=== PATIENT | female | born 1960 | race Caucasian/White ===

== ENCOUNTER 2016-12-15 10:44 | Outpatient (CLI) | payer MEDICAID ==
[2016-12-15 20:16] LABS: FOLLICLE STIMULATING HORMONE 59.47 mIU/mL
[2016-12-15 20:17] LABS: LUTEINIZING HORMONE 25.17 mIU/mL
== END 2016-12-15 10:45 | disposition home or self-care (01) ==
LOC: LAB.N 10:44
PROVIDERS: ATTEND Obstetrics & Gynecology
DX: N95.1 Menopausal and female climacteric states (principal); Z86.59 Personal history of other mental and behavioral disorders
CPT/HCPCS: 36415; 83001; 83002; 87340; 87389

== ENCOUNTER 2016-12-24 13:09 | Outpatient (CLI) | payer MEDICAID ==
--- NOTE | 2016-12-24 15:51 | XRAY Report ---
TWO VIEW THORACIC SPINE: 12/24/2016 CLINICAL INDICATION: Chronic pain. FINDINGS: Frontal and lateral views of the thoracic spine demonstrate mild degenerative disk disease , with degenerative dextroscoliosis. No definite compression fracture is identified. No paraspinal he matoma is seen. IMPRESSION: DEGENERATIVE CHANGES, WITH DEGENERATIVE DEXTROSCOLIOSIS. JOB #: [id number] EXT JOB #:[id number]
--- NOTE | 2016-12-24 15:52 | XRAY Report ---
THREE VIEW LUMBAR SPINE: 12/24/2016 CLINICAL INDICATION: Chronic pain. FINDINGS: AP, lateral, and coned down views of the lumbar spine demonstrate degenerative changes, wi th degenerative levoscoliosis. There are mild compression deformities of T12, L3 and L4. The bowel ga s pattern appears unremarkable. IMPRESSION: DEGENERATIVE CHANGES, WITH CHRONIC APPEARING COMPRESSION FRACTURES OF T12, L3, AND L4, W ITH RESULTANT LEVOSCOLIOSIS. JOB #: [id number] EXT JOB #:[id number]
== END 2016-12-24 13:10 | disposition home or self-care (01) ==
LOC: DI 13:09
PROVIDERS: ATTEND Nurse Practitioner Gerontology
DX: M51.34 Other intervertebral disc degeneration, thoracic region (principal); M41.54 Other secondary scoliosis, thoracic region; M47.896 Other spondylosis, lumbar region; M43.8X6 Other specified deforming dorsopathies, lumbar region; M41.56 Other secondary scoliosis, lumbar region
CPT/HCPCS: 72070; 72100

== ENCOUNTER 2017-04-05 12:31 | Emergency (ER) | payer MEDICAID ==
--- NOTE | 2017-04-05 13:37 | ED Physician Documentation ---
PD HPI URI - Stated complaint Stated Complaint: COUGH,RUNNY NOSE,BODY ACHES,FEVER - Chief complaint Chief Complaint: Heent - History obtained from History obtained from: Patient - History of Present Illness Timing - onset: Other (Sick for less than 24 hours with cough, body aches, rhinorrhea, fevers and chills.) Review of Systems Constitutional: reports: Fever, Chills, Fatigue, Sweats Nose: reports: Rhinorrhea / runny nose, Congestion Throat: reports: Sore throat Cardiac: denies: Chest pain / pressure, Palpitations Respiratory: reports: Cough. denies: Dyspnea GI: denies: Abdominal Pain, Abdominal Swelling PD PAST MEDICAL HISTORY - Past Medical History Past Medical History: No Cardiovascular: None Respiratory: None Neuro: None Endocrine/Autoimmune: None Psych: None Musculoskeletal: None - Past Surgical History Past Surgical History: Yes General: Other /SHIFT COORDINATOR: Breast reduction - Present Medications Home Medications: Ambulatory Orders Medication Instructions Recorded Confirmed Fluticasone [Flonase] 07/13/14 07/13/14 Hydrocodone/Acetaminophen 1 - 2 each PO Q6H PRN #15 tablet 07/13/14 [Hydrocodon-Acetaminophen 5-325] Ipratropium [place] 07/13/14 07/13/14 Omeprazole [PriLOSEC] 1 tab DAILY 07/13/14 07/13/14 Penicillin V Potassium 500 mg PO QID #40 tablet 07/13/14 predniSONE [Deltasone] 60 mg PO DAILY 5 Days tablet 07/13/14 Albuterol Sulfate [Proventil Hfa 1 - 2 puffs IH Q4H PRN #1 04/05/17 Inhaler] hfa.aer.ad guaiFENesin/CODEINE [Robitussin AC] 5 - 10 ml PO Q6H PRN #120 ml 04/05/17 - Allergies Allergies/Adverse Reactions: Allergies Allergy/AdvReac Type Severity Reaction Status Date / Time doxycycline Allergy Unknown Verified 07/13/14 12:05 - Social History Does the pt smoke?: Yes Smoking Status: Current every day smoker Does the pt drink ETOH?: No Does the pt have substance abuse?: No - Immunizations Immunizations are current?: Yes PD ED PE NORMAL - Vitals Vital signs reviewed: Yes - General General: Alert and oriented X 3, No acute distress - HEENT HEENT: PERRL, EOMI, Ears normal, Pharynx benign - Neck Neck: Supple, no meningeal sign, No bony TTP - Cardiac Cardiac: RRR, No murmur - Respiratory Respiratory: No respiratory distress, Clear bilaterally - Abdomen Abdomen: Non tender - Derm Derm: No rash - Neuro Neuro: Alert and oriented X 3, Normal speech Results - Vitals Vitals: Vital Signs - 24 hr 04/05/17 12:36 Temperature 36.6 C Heart Rate 79 Respiratory 18 Rate Blood Pressure 134/99 H O2 Saturation 97 Oxygen O2 Source Room air - Labs Labs: Laboratory Tests 04/05/17 13:52 Influenza A (Rapid) Negative Influenza B (Rapid) Negative Influenza Types A,B Ag - Departure - Departure Disposition: Home, Self Care Clinical Impression: Viral syndrome Condition: Good Record reviewed to determine appropriate education?: Yes Instructions: ED Viral Syndrome Prescriptions: Albuterol Sulfate [Proventil Hfa Inhaler] 1 - 2 puffs IH Q4H PRN #1 hfa.aer.ad PRN Reason: Cough guaiFENesin/CODEINE [Robitussin AC] 5 - 10 ml PO Q6H PRN #120 ml PRN Reason: Cough Comments: Follow-up with your doctor in 1 week if not better. Return if worse or if new symptoms develop. Your blood pressure was elevated today on check into the emergency department. This does not mean that you have hypertension, it is a common phenomenon to come to the emergency department and have elevated blood pressure. I recommend that you see your primary care physician within the week to have it rechecked when you are feeling better.
[2017-04-05 14:35] VITALS: BP 136/94
== END 2017-04-05 14:28 | disposition home or self-care (01) ==
LOC: ED 12:31
DX: B34.9 Viral infection, unspecified (principal); R03.0 Elevated blood-pressure reading, without diagnosis of hypertension; F17.200 Nicotine dependence, unspecified, uncomplicated
CPT/HCPCS: 87275; 87276; 99283

== ENCOUNTER 2017-04-11 09:36 | Outpatient (CLI) | payer MEDICAID ==
--- NOTE | 2017-04-11 15:42 | Ultrasound Report ---
DATE OF SERVICE: 04/11/2017 ULTRASOUND OF LEFT POSTERIOR CHEST: 04/11/2017 CLINICAL INDICATION: Palpable abnormality. TECHNIQUE: Real-time scanning was performed with account service representative static images obtained. FINDINGS: Ultrasound of the palpable abnormality identified by the patient was performed. At this site, there is a 5.7 x 3.4 x 1.2 cm lipoma. No sonographically suspicious findings are appreciated. IMPRESSION: LIPOMA, ACCOUNTING FOR THE PALPABLE ABNORMALITY. TD: 04/11/2017 16:41
== END 2017-04-11 09:37 | disposition home or self-care (01) ==
LOC: DI 09:36
PROVIDERS: ATTEND Nurse Practitioner Gerontology
DX: D17.1 Benign lipomatous neoplasm of skin and subcutaneous tissue of trunk (principal)
CPT/HCPCS: 76604

== ENCOUNTER 2017-05-19 14:58 | Outpatient (CLI) | payer MEDICAID ==
--- NOTE | 2017-05-20 10:53 | XRAY Report ---
THREE VIEW BILATERAL KNEES: 05/19/2017 CLINICAL INDICATION: Pain. FINDINGS: AP, lateral, sunrise views of the bilateral knees demonstrate mild bilateral osteoarthritis. There is no evidence of fracture or dislocation. No effusion is present on either side. IMPRESSION: MILD OSTEOARTHRITIS. TD: 05/20/2017 10:52
== END 2017-05-19 14:59 | disposition home or self-care (01) ==
LOC: DI.N 14:58
PROVIDERS: ATTEND Nurse Practitioner Gerontology
DX: M17.0 Bilateral primary osteoarthritis of knee (principal)

== ENCOUNTER 2017-06-03 09:48 | Outpatient (CLI) | payer MEDICAID ==
--- NOTE | 2017-06-03 13:28 | XRAY Report ---
TWO VIEW CHEST: 06/03/2017 CLINICAL INDICATION: Preop, cervical prolapse. FINDINGS: Frontal and lateral views of the chest demonstrate a normal cardiac silhouette. The lungs are clear. No effusion or pneumothorax is present. IMPRESSION: NORMAL CHEST. TD: 06/03/2017 13:27
== END 2017-06-03 09:49 | disposition home or self-care (01) ==
LOC: LAB 09:48 → RT 09:49
PROVIDERS: ATTEND Obstetrics & Gynecology
DX: Z01.818 Encounter for other preprocedural examination (principal); N81.4 Uterovaginal prolapse, unspecified; N81.6 Rectocele; N81.10 Cystocele, unspecified
CPT/HCPCS: 71046; 93005

== ENCOUNTER 2017-06-06 11:23 | Outpatient (CLI) | payer MEDICAID ==
[2017-06-06 11:51] LABS: BASOPHILS # (AUTO) 0.1 10^3/uL (0.0-0.1); BASOPHILS % (AUTO) 0.5 %; EOSINOPHILS % (AUTO) 0.4 %; HGB - HEMOGLOBIN 14.8 g/dL (12.0-16.0); LYMPHOCYTES # (AUTO) 3.2 10^3/uL (1.5-3.5); LYMPHOCYTES % (AUTO) 33.4 %; MEAN CORPUSCULAR HEMOGLOBIN 29.4 pg (27.0-31.0); MEAN CORPUSCULAR HGB CONC 34.6 g/dL (32.0-36.0); MEAN CORPUSCULAR VOLUME 85.1 fL (81.0-99.0); MEAN PLATELET VOLUME 7.8 fL (7.9-10.8); MONOCYTES # (AUTO) 0.4 10^3/uL (0.0-1.0); MONOCYTES % (AUTO) 4.7 %; NEUTROPHILS # (AUTO) 5.8 10^3/uL (1.5-6.6); PLT - PLATELET COUNT 255 10^3/uL (130-450); RED BLOOD COUNT 5.02 10^6/uL (4.20-5.40); RED CELL DISTRIBUTION WIDTH 12.3 % (12.0-15.0); WHITE BLOOD COUNT 9.6 x10^3/uL (4.8-10.8)
[2017-06-06 12:02] LABS: ALBUMIN 4.3 g/dL (3.2-5.5); ALBUMIN/GLOBULIN RATIO 1.1 (1.0-2.2); BILIRUBIN,TOTAL 0.7 mg/dL (0.2-1.0); CALCIUM 9.2 mg/dL (8.5-10.3); CREATININE 0.5 mg/dL (0.4-1.0); TOTAL PROTEIN 8.3 g/dL (6.7-8.2)
== END 2017-06-06 11:24 | disposition home or self-care (01) ==
LOC: LAB 11:23
PROVIDERS: ATTEND Obstetrics & Gynecology
DX: Z01.818 Encounter for other preprocedural examination (principal); N81.4 Uterovaginal prolapse, unspecified; N81.6 Rectocele; N81.10 Cystocele, unspecified
CPT/HCPCS: 36415; 80053; 85025; 86850; 86900; 86901

== ENCOUNTER 2017-06-08 07:49 | Observation (INO) | payer MEDICAID ==
--- NOTE | 2017-06-07 15:24 | PREOP HISTORY & PHYSICAL ---
DATE OF SERVICE: 06/08/2017 Physician: Dashawn Russell MD IDENTIFICATION: The patient is a 56-year-old, G2, P2 female who reached menopause at time of hysterectomy. She states subsequent to this, she has had difficulty with bulging in the vaginal area. She states over the last 2 years that this has been getting progressively worse, she needs to rectal splint, as well as hold her abdomen when she defecates. She has difficulty with stress incontinence when she sneezes, laughs, coughs. She states that she has had 2 children vaginally, one of which was forceps. She was scheduled for an anterior posterior repair with sacrospinous ligament support in February of last year, but it had to be postponed because of operating room concerns and then again because of what appeared to be a URI. She did not engage in any intercourse at this time. PAST MEDICAL HISTORY: The patient has some difficulty with some heartburn. She also has some arthritis in her back and knees. SURGICAL HISTORY: Positive for a supracervical hysterectomy in 2006. She has had an open cholecystectomy. ALLERGIES: DOXYCYCLINE. CURRENT MEDICATIONS: Zantac. HABITS: The patient smokes 4 cigarettes per day and has been encouraged to complete this completely. She denies use of alcohol or any tetrahydrocannabinol. SOCIAL HISTORY: The patient is . She is retired at this time. She lives around family to support her. PHYSICAL EXAMINATION GENERAL: The patient is a well-developed, well-nourished female. She is in no acute distress. Her voice does sound like a bit of smoker's cough. VITAL SIGNS: Blood pressure 126/78. BMI is 32.2. Height is 62 inches, weight is 176 pounds. HEENT: Pupils are equal, round. Extraocular muscles are intact. There is no evidence of any scleral icterus. HEART: Regular rate and rhythm without murmurs. LUNGS: Lung felix are clear without rales or wheezes. BACK: No spinal or CVA tenderness noted. ABDOMEN: Shows a well-healed scar from her previous hysterectomy, as well as her open cholecystectomy. PELVIC: Shows a large cystocele, as well as rectocele. There is evidence of an enterocele behind her cervix. PLAN: At this point, we will plan to proceed on with an anterior posterior repair, as well as an enterocele repair and a sacrospinous ligament support. We will do a trachelectomy at the same time. Risks and benefits were explained to the patient including those but not limited to bleeding, infection; injury to the pelvic organs which include the uterus, tubes, ovaries, bowel, bladder and ureters. She is aware of the potential for DVT with PE, as well as postop adhesions which could cause pain, bowel obstruction, infertility. She is also aware that she may continue to have difficulty with defecation, as well as stress incontinence. At this point, the patient is somewhat reticent to do a sling procedure. TD: 06/07/2017 15:13
[2017-06-08] MEDS ORDERED: BUPIVACAINE 0.5% PF 10 ML VIAL ONE (08:04)
[2017-06-08] MEDS ORDERED: ceFAZolin 2 GM/50 ML 2 GM/50 ML BAG IV ONE (08:05)
[2017-06-08] MEDS ORDERED: LACTATED RINGERS 1,000 ML IV ONE ×3 (08:14→13:11)
[2017-06-08] MEDS ORDERED: SODIUM CHLORIDE 0.9% 0 ML ONE (09:19)
[2017-06-08] MEDS ORDERED: BUPIVACAINE 0.5%-EPI 1:200000 PF 10 ML VIAL ONE (09:19)
[2017-06-08] MEDS ORDERED: ACETAMINOPHEN 1,000 MG/100 ML 100 ML IV ONE (09:37)
[2017-06-08] MEDS ORDERED: MIDAZOLAM 2 MG/2 ML VIAL IVP ONE (09:37)
[2017-06-08] MEDS ORDERED: LIDOCAINE-MPF 2% 5 ML VIAL IM ONE (09:37)
[2017-06-08] MEDS ORDERED: DEXAMETHASONE 4 MG/ML VIAL IVP ONE (09:37)
[2017-06-08] MEDS ORDERED: KETOROLAC 30 MG/ML VIAL IVP ONE (09:37)
[2017-06-08] MEDS ORDERED: ONDANSETRON 4 MG/2 ML VIAL IVP ONE (09:37)
[2017-06-08] MEDS ORDERED: HYDROmorphone 1 MG/ML SYRINGE IVP ONE (09:37)
[2017-06-08] MEDS ORDERED: ESMOLOL 100 MG/10 ML VIAL IVP ONE (09:37)
[2017-06-08] MEDS ORDERED: PROPOFOL 200 MG/20 ML VIAL IVP ONE (09:37)
[2017-06-08] MEDS ORDERED: fentaNYL 250 MCG/5 ML VIAL IVP ONE (09:37)
[2017-06-08] MEDS ORDERED: EPINEPHrine 1 MG/ML AMP ONE ×2 (09:53→10:11)
[2017-06-08] MEDS ORDERED: BUPIVACAINE 0.25% PF 30 ML VIAL ONE ×2 (09:53→10:12)
[2017-06-08] MEDS ORDERED: BUPIVACAINE 0.25% PF 30 ML VIAL SUBQ ONE (10:11)
[2017-06-08] MEDS ORDERED: EPINEPHrine 1 MG/ML AMP IVP ONE (10:11)
[2017-06-08] MEDS ORDERED: GENTAMICIN 80 MG/2 ML VIAL IL ONE (11:27)
[2017-06-08] MEDS ORDERED: GENTAMICIN 80 MG/2 ML VIAL ONE (11:29)
[2017-06-08] MEDS ORDERED: ESTROGENS, CONJUGATED CREAM 30 GM TUBE VG ONE (12:00)
[2017-06-08] MEDS ORDERED: ESTROGENS, CONJUGATED CREAM 30 GM TUBE ONE (12:08)
[2017-06-08] MEDS ORDERED: ONDANSETRON 4 MG/2 ML VIAL IVP PRN (12:35)
[2017-06-08] MEDS ORDERED: ALBUTEROL NEB 2.5 MG/3 ML INH PRN (12:43)
[2017-06-08] MEDS: HYDROmorphone 1 MG/ML SYRINGE ONE ×2 (12:51→12:58)
[2017-06-08] MEDS ORDERED: KETOROLAC 30 MG/ML VIAL IVP SCH ×2 (13:00→20:00)
[2017-06-08] MEDS ORDERED: ACETAMINOPHEN 500 MG TABLET PO SCH (13:00)
[2017-06-08] MEDS: PHENAZOPYRIDINE 100 MG TABLET PO SCH ×3 (13:02→22:15)
[2017-06-08] MEDS ORDERED: SODIUM CHLORIDE FLUSH 0.9% 10 ML SYRINGE ONE (15:58)
[2017-06-08] MEDS: SIMETHICONE CHEW 80 MG TABLET PO SCH ×2 (16:18→22:16)
[2017-06-08] MEDS: oxyCODONE 5 MG TABLET PO PRN (21:22)
[2017-06-08] MEDS: LACTATED RINGERS 1,000 ML IV SCH ×2 (22:11→23:21)
[2017-06-08] MEDS: KETOROLAC 30 MG/ML VIAL IVP SCH (22:15)
[2017-06-08] MEDS: DOCUSATE SODIUM 100 MG CAPSULE PO SCH (22:15)
[2017-06-08] MEDS: ACETAMINOPHEN 500 MG TABLET PO SCH (23:21)
[2017-06-09] MEDS: KETOROLAC 30 MG/ML VIAL IVP SCH ×2 (04:26→09:58)
[2017-06-09] MEDS: SIMETHICONE CHEW 80 MG TABLET PO SCH ×2 (05:34→14:43)
[2017-06-09] MEDS: PHENAZOPYRIDINE 100 MG TABLET PO SCH ×2 (05:34→14:43)
[2017-06-09] MEDS: oxyCODONE 5 MG TABLET PO PRN ×2 (05:40→12:39)
[2017-06-09 05:46] LABS: BASOPHILS # (AUTO) 0.1 10^3/uL (0.0-0.1); BASOPHILS % (AUTO) 0.4 %; HGB - HEMOGLOBIN 12.8 g/dL (12.0-16.0); LYMPHOCYTES # (AUTO) 2.6 10^3/uL (1.5-3.5); LYMPHOCYTES % (AUTO) 14.3 %; MEAN CORPUSCULAR HEMOGLOBIN 28.8 pg (27.0-31.0); MEAN CORPUSCULAR HGB CONC 33.7 g/dL (32.0-36.0); MEAN CORPUSCULAR VOLUME 85.5 fL (81.0-99.0); MEAN PLATELET VOLUME 7.9 fL (7.9-10.8); MONOCYTES # (AUTO) 0.9 10^3/uL (0.0-1.0); MONOCYTES % (AUTO) 4.9 %; NEUTROPHILS # (AUTO) 14.5 10^3/uL (1.5-6.6); NEUTROPHILS % (AUTO) 80.4 %; PLT - PLATELET COUNT 234 10^3/uL (130-450); RED BLOOD COUNT 4.43 10^6/uL (4.20-5.40); RED CELL DISTRIBUTION WIDTH 12.7 % (12.0-15.0)
--- NOTE | 2017-06-09 08:26 | PROVIDER PROGRESS NOTE ---
Subjective - General Admit Date: 06/08/17 Procedure Date: 06/08/17 Post Op Days: 1 Procedure Performed: Traclectomy, A&P, Sacrospinus ligament suspension - Review of Systems Wound/Incisions: positive: Healing well Drain Type: Vaginal packing out General: positive: No symptoms (Pt notes pain 3/10 with good pain control.) Pulmonary: positive: No symptoms, Cough (Chronic smokers cough) Cardiovascular: positive: No symptoms Gastrointestinal: positive: No symptoms (tolerating a regular diet), Flatus Genitourinary: positive: No symptoms (Parrish out this AM) Psychiatric: positive: No symptoms Objective - Patient Data Reviewed Vital Signs: Yes Vital Signs: Vital Signs x48h Temp Pulse Pulse Resp BP Pulse Ox 06/09/17 08:00 36.6 C 65 18 137/60 H 94 06/09/17 07:20 62 16 06/09/17 05:31 36.6 C 54 L 16 148/63 H 96 Weight: Weight 06/07/17 06/08/17 06/09/17 23:59 23:59 23:59 Weight (kg) 80.4 kg Intake & Output: Intake and Output Totals x24h 06/07/17 06/08/17 06/09/17 23:59 23:59 23:59 Intake Total 1840 1800.000 Output Total 2100 1500 Balance -260 300.000 - Lab Results Lab Results: 06/09/17 05:24 Other Lab Results: Lab Results x24hrs 06/09/17 Range/Units 05:24 WBC 18.0 H (4.8-10.8) x10^3/uL RBC 4.43 (4.20-5.40) 10^6/uL Hgb 12.8 (12.0-16.0) g/dL Hct 37.9 (37.0-47.0) % MCV 85.5 (81.0-99.0) fL MCH 28.8 (27.0-31.0) pg MCHC 33.7 (32.0-36.0) g/dL RDW 12.7 (12.0-15.0) % Plt Count 234 (130-450) 10^3/uL MPV 7.9 (7.9-10.8) fL Neut # 14.5 H (1.5-6.6) 10^3/uL Lymph # 2.6 (1.5-3.5) 10^3/uL Terrell # 0.9 (0.0-1.0) 10^3/uL Eos # 0.0 (0.0-0.7) 10^3/uL Baso # 0.1 (0.0-0.1) 10^3/uL Absolute Nucleated RBC 0.00 x10^3/uL Nucleated RBC % 0.0 /100WBC - Imaging Results Radiology Imaging: positive: Prelim report reviewed, Final report received (CXR negative for Dz) - Current Medications Current Medications: Current Medications Generic Name Dose Route Start Last Admin Trade Name Freq PRN Reason Stop Dose Admin Acetaminophen 1,000 mg 06/09/17 00:00 06/08/17 23:21 Tylenol PO 1,000 mg Q8H [place] Administration Albuterol 2.5 mg 06/08/17 12:43 06/09/17 07:20 INH 2.5 mg RTQ4H PRN Administration Wheezing Docusate Sodium 100 mg 06/08/17 21:00 06/08/17 22:15 Colace 100mg Capsule PO 100 mg BID [place] Administration Lactated Ringer's 1,000 mls @ 100 mls/hr 06/08/17 13:00 06/09/17 08:20 Lr IV Infused .Q10H [place] Infusion Ketorolac Tromethamine 30 mg 06/08/17 22:00 06/09/17 04:26 Toradol Inj IVP 06/13/17 21:59 30 mg Q6H [place] Administration Oxycodone HCl 5 mg 06/08/17 12:35 06/09/17 05:40 Roxicodone PO 5 mg Q4HR PRN Administration PAIN Phenazopyridine HCl 100 mg 06/08/17 22:00 06/09/17 05:34 Pyridium PO 100 mg TID [place] Administration Simethicone 80 mg 06/08/17 14:00 06/09/17 05:34 Mylicon PO 80 mg TID [place] Administration - Physical Exam General Appearance: positive: No acute distress Respiratory: positive: Chest non-tender, No respiratory distress, Breath sounds nml Cardiovascular: positive: Regular rate & rhythm, No murmur, No gallop Abdomen: positive: Non-tender, No organomegaly, Nml bowel sounds, No distention Back: positive: Nml inspection. negative: CVA tenderness (R), CVA tenderness (L ) Skin: positive: Color nml Extremities: negative: Calf tenderness, Pauly's sign/cords Neurologic/Psychiatric: positive: Oriented x3 Impression/Plan - Problem List Problem List: POD #1 Progressing well IV, Parrish, and vaginal packing out Send home. Discharge medications Motrin 800 mg # 30 first Oxycodone 5 mg #15 second Colace 100 mg BID for 30 days #60 Miralax Home supply for first 3 ddays RTC 1-2 weeks Don't let get constipated.
--- NOTE | 2017-06-09 08:34 | Discharge Plan ---
Discharge Plan Disposition: 01 Home, Self Care Condition: Good Diet: Regular Activity Restrictions: Pelvic rest, no lifting greater than 20 lb Shower Restrictions: No Driving Restrictions: No (While taking her narcotics) No Smoking: If you smoke, Please STOP! Call for help. Follow-up with: Vandana Rodriguez ARNP [Primary Care Provider] - Dashawn Russell MD [Provider Admit Priv/Credential] -
[2017-06-09] MEDS: ACETAMINOPHEN 500 MG TABLET PO SCH (08:58)
[2017-06-09] MEDS: DOCUSATE SODIUM 100 MG CAPSULE PO SCH (08:59)
[2017-06-09] MEDS: LACTATED RINGERS 1,000 ML IV SCH (08:59)
[2017-06-09] MEDS ORDERED: NICOTINE 14 MG PATCH TOP SCH (09:00)
[2017-06-09] MEDS ORDERED: SODIUM CHLORIDE FLUSH 0.9% 10 ML SYRINGE ONE ×2 (09:02→10:02)
--- NOTE | 2017-06-09 09:23 | OPERATIVE REPORT ---
PLEASE VERIFY BLANK; REMOVE THIS NOTICE BEFORE SIGNING Sounded like 'cystocele was performed' Thanks DATE OF SERVICE: 06/08/2017 Physician: Dashawn Russell MD PREOPERATIVE DIAGNOSIS: Large symptomatic cystocele, rectocele, vaginal prolapse. POSTOPERATIVE DIAGNOSIS: Large symptomatic cystocele, rectocele, vaginal prolapse. PROCEDURE PERFORMED: Anterior and posterior repair, trachelectomy, sacrospinous ligament repair. SURGEON: Dashawn Russell MD CAR BODY INSPECTOR: Dashawn Watson MD ANESTHESIA: General via LMA. FINDINGS: Large cystocele as well as rectocele. She also had a cervix which prolapsed to the introitus. Vaginal mucosa appeared somewhat atrophic secondary to estrogenic state. PROCEDURE: Following adequate general anesthesia via LMA, patient was positioned in [facility] cane stirrups. At this point, pelvic examination was performed. There was a large amount of stool in the rectum, this was expressed. At this point, she was then prepped and draped in the usual fashion. At this point, a timeout was performed in which the patient was identified, concerns were addressed, and the procedure commenced. A weighted speculum was placed in the posterior fornix. Cervix was visualized, grasped with thyroid Abdifatah clamp anteriorly. The cervix was then circumscribed using electrocautery. Then using both blunt and sharp dissection, the bladder was pushed off the lower portion of the cervix. The posterior peritoneum was then entered posteriorly with Yao scissors. The uterosacral ligaments were cross clamped with Rolan clamps and then divided and then ligated with 0 Ethibond. Then the bladder was pushed a little bit farther anteriorly and then the transverse cervical ligaments were cross clamped with Rolan clamps, divided with Yao scissors and ligated with 0 Ethibond suture. Care was taken to try and slide off the bladder as closely as possible to decrease the risk of injury to the bladder or ureters. At this point, the clamp was placed on both sides. These traversed the apex of the cervix. Care was taken to push the bladder off to decrease the risk of bladder injury. Pedicles developed using Yao scissors and these were ligated with 0 Vicryl. The cervix was then removed from the vagina. The bladder was inspected and there was no evidence of any suture sites or injury sites at this time. At this point, the area was inspected. No bleeding was noted, so a pursestring of 4-0 Monocryl was placed. This closed the peritoneal surfaces. The uterosacral ligaments were injected with 0.25% Marcaine with epinephrine, 10 mL in each side. The corners of the apex of the vagina were then closed utilizing 0 Vicryl [id number]. Then, the apex of the vagina anteriorly was grasped with Allis, and then an Allis clamp was placed roughly 2 cm from the urethral opening. Metzenbaums were then used to dissect the vaginal mucosa from the vesicovaginal fascia as well as divide this. The edges were grasped with Allis-Adagiselle. The vaginal mucosa was pushed free from the bladder. At this point, interrupted sutures of 0 Vicryl were used to plicate the vesicovaginal fascia. An additional suture was placed anteriorly under the urethra to help with urinary continence. The excess vaginal mucosa was then trimmed, and then this was closed utilizing [id number] of 2-0 Vicryl. The apex of the vagina was then closed using interrupted sutures of 2-0 Vicryl. Prior to this, the transverse cervical ligaments were tied to themselves with the suture. Then, the perineum was excised utilizing a #10 blade in a triangular fashion. Then, the corners were grasped with Allis and utilizing Metzenbaum scissors, the vaginal mucosa was dissected free from the rectovaginal fascia and then divided utilizing Yao scissors. This was carried all the way up to within 3 cm of the apex of the vagina. Then using blunt dissection, the sacrospinous ligament was dissected to and then identified. Two sutures of Tevdek were then placed in the sacrospinous ligament. Care was to make sure these had a good firm attachment. Then, 1 arm was placed through the posterior vagina to withdraw it up into the pelvis. Following this, the rectovaginal fascia was plicated with 0 Vicryl and then the apex of the vaginal mucosa was closed using interrupted 2-0 Vicryl. Then utilizing a jair system, the apex of the vagina was pulled up to the right sacrospinous ligament and then tied. This showed evidence of the vagina going high into the pelvis on the right hand side. The remainder of the posterior vaginal mucosa was closed utilizing 2-0 Vicryl, and the perineum was closed using 2-0 Vicryl. There was evidence of good hemostasis. The vagina was then packed with estrogen and gauze. A cystoscopy was performed. There was evidence of exuberant flow from both ureteral orifices. There were no sutures that were visualized, blood in the bladder, or any other abnormalities. There was some dimpling of the bladder mucosa from the sutures, which were plicating the vesicovaginal fascia. The patient tolerated the procedure well and was taken to recovery in stable condition. Sponge and needle counts were correct. TD: 06/08/2017 13:42 MTDValerio
[2017-06-09 13:54] VITALS: BP 143/72
== END 2017-06-09 14:43 | disposition home or self-care (01) ==
LOC: SDS 07:49 → OBS 12:36
PROVIDERS: ADMIT Obstetrics & Gynecology; ATTEND Obstetrics & Gynecology
PROC: 0JQC0ZZ Repair Pelvic Region Subcutaneous Tissue and Fascia, Open Approach (ICD-10-PCS; 2017-06-08)
PROC: 0JQC0ZZ Repair Pelvic Region Subcutaneous Tissue and Fascia, Open Approach (ICD-10-PCS; 2017-06-08)
PROC: 0UTC0ZZ Resection of Cervix, Open Approach (ICD-10-PCS; 2017-06-08)
PROC: 0USG0ZZ Reposition Vagina, Open Approach (ICD-10-PCS; 2017-06-08)
PROC: 0TJB8ZZ Inspection of Bladder, Via Natural or Artificial Opening Endoscopic (ICD-10-PCS; principal; 2017-06-08 09:00)
DX: N81.10 Cystocele, unspecified (principal); N81.6 Rectocele; N81.85 Cervical stump prolapse; N39.3 Stress incontinence (female) (male); K21.9 Gastro-esophageal reflux disease without esophagitis; F17.210 Nicotine dependence, cigarettes, uncomplicated; F41.9 Anxiety disorder, unspecified; B19.20 Unspecified viral hepatitis C without hepatic coma; F19.11 Other psychoactive substance abuse, in remission; Z90.711 Acquired absence of uterus with remaining cervical stump; Z78.0 Asymptomatic menopausal state; Z87.09 Personal history of other diseases of the respiratory system; Z90.49 Acquired absence of other specified parts of digestive tract
CPT/HCPCS: 36415; 57282; 57555; 85025; 88307; 94640; A9270; J0131; J0690; J1170; J1580; J3010; J7120

== ENCOUNTER 2018-02-07 08:00 | Outpatient (CLI) | payer MEDICAID ==
[2018-02-07 12:39] LABS: CALCIUM 8.9 mg/dL (8.5-10.3); CREATININE 0.7 mg/dL (0.4-1.0)
== END 2018-02-07 08:01 | disposition home or self-care (01) ==
LOC: LAB.N 08:00
PROVIDERS: ATTEND Nurse Practitioner Gerontology
DX: R25.2 Cramp and spasm (principal)
CPT/HCPCS: 36415; 80048

== ENCOUNTER 2018-06-15 11:03 | Outpatient (CLI) | payer MEDICAID ==
--- NOTE | 2018-06-15 14:42 | XRAY Report ---
Reason: RIB PAIN Procedure Date: 06/15/2018 Accession Number: [id number] / [id number] Procedure: XRN - Chest 2 View X-Ray CPT Code: 29230 FULL RESULT: EXAM: CHEST RADIOGRAPHY EXAM DATE: 06/15/2018 11:22 AM. CLINICAL HISTORY: Fall with left-sided rib pain. COMPARISON: CHEST 2 VIEW 06/03/2017 11:34 AM. TECHNIQUE: 2 views. FINDINGS: Lungs/Pleura: No focal opacities evident. No pleural effusion. No pneumothorax. Normal volumes. Mediastinum: Heart and mediastinal contours are unremarkable. Other: Stable thoracic dextro-scoliotic curvature. No appreciable displaced rib fractures on the provided imaging. If there is persistent clinical concern of a rib fracture, consider dedicated rib series. IMPRESSION: Normal 2-view chest radiography. RADIA
== END 2018-06-15 11:04 | disposition home or self-care (01) ==
LOC: DI.N 11:03
PROVIDERS: ATTEND Physician Assistant Medical
DX: R07.81 Pleurodynia (principal)
CPT/HCPCS: 71046

== ENCOUNTER 2018-07-03 11:48 | Outpatient (CLI) | payer MEDICAID ==
--- NOTE | 2018-07-03 15:38 | XRAY Report ---
Reason: RIB PAIN,LEFT SIDED Procedure Date: 07/03/2018 Accession Number: [id number] / [id number] Procedure: XRN - Ribs 2 View LT CPT Code: FULL RESULT: EXAM: LEFT RIB RADIOGRAPHY EXAM DATE: 07/03/2018 12:05 PM. CLINICAL HISTORY: Rib pain, left-sided. COMPARISON: CHEST 2 VIEW 06/15/2018 11:24 AM. TECHNIQUE: 2 views. FINDINGS: Bones: The bones are qualitatively osteopenic; this limits evaluation for underlying fractures or masses. No definite rib fracture is detected. Lungs: No focal opacities evident. No pneumothorax or pleural effusions. Mediastinum: Heart and cardiomediastinal contours are unremarkable. Other: None. IMPRESSION: Osteopenia with no definite rib fracture detected. RADIA
== END 2018-07-03 11:49 | disposition home or self-care (01) ==
LOC: DI.N 11:48
PROVIDERS: ATTEND Nurse Practitioner Gerontology
DX: M85.88 Other specified disorders of bone density and structure, other site (principal); R07.81 Pleurodynia

== ENCOUNTER 2019-04-13 16:06 | Outpatient (CLI) | payer MEDICAID ==
--- NOTE | 2019-04-13 16:30 | XRAY Report ---
Reason: CHRONIC COUGH Procedure Date: 04/13/2019 Accession Number: [id number] / [id number] Procedure: XRN - Chest 2 View X-Ray CPT Code: 19437 Final Report FULL RESULT: EXAM: CHEST RADIOGRAPHY EXAM DATE: 04/13/2019 04:18 PM. CLINICAL HISTORY: Chronic cough. COMPARISON: Chest radiograph from 07/03/2018. TECHNIQUE: 2 views. FINDINGS: Lungs/Pleura: No focal airspace opacity. No pleural effusion or pneumothorax. Mediastinum: Cardiomediastinal silhouette and pulmonary vasculature are within normal limits. Other: None. IMPRESSION: No acute cardiopulmonary abnormality. RADIA
== END 2019-04-13 16:07 | disposition home or self-care (01) ==
LOC: DI.N 16:06
PROVIDERS: ATTEND Nurse Practitioner Gerontology
DX: R05 Cough (principal)
CPT/HCPCS: 71046

== ENCOUNTER 2019-06-16 12:59 | Outpatient (CLI) | payer MEDICAID ==
--- NOTE | 2019-06-16 15:55 | MRI Report ---
Reason: SUBCUTANEOUS MASS OF RT FINGER Procedure Date: 06/16/2019 Accession Number: [id number] / [id number] Procedure: MRI - Finger(s) LT W/O CPT Code: 76037 Final Report FULL RESULT: EXAM: LEFT HAND SECOND DIGIT MR WITHOUT CONTRAST EXAM DATE: 06/16/2019 01:58 PM. CLINICAL HISTORY: Subcutaneous mass of right finger. COMPARISON: FINGER(S) RT 04/05/2019 4:09 PM. TECHNIQUE: Multiplanar, multisequence T1-weighted and fluid-sensitive sequences of the finger without contrast. Other: None. FINDINGS: Bones: No fractures or subluxations. No marrow edema. No bone lesions. Cartilage: The articular cartilage is unremarkable. Ligaments: At the second MCP joint, there is chronic tearing of the radial collateral ligament. Series 1001 image 6. At the visualized second PIP joint, collaterals are normal. Tendons: The flexor and extensor tendons are unremarkable. The visualized pulleys are intact. Musculature: No edema or fatty atrophy. Other: No joint effusions or capsular rupture. Focal area of concern on plain x-ray corresponds to a rounded area of abnormality which is low on T1 and low on T2 and measures 3.2 mm from front to back by 4.6 mm from side to side with 3.6 mm from top to bottom, adjacent to but not involving the bony cortex of the second proximal phalanx. No surrounding increased T2 signal is noted. IMPRESSION: 1. Focal area of concern on the plain x-ray corresponds to a soft tissue area of calcification. No significant flow. No ferromagnetic effect is present. This is probably some dystrophic calcification from previous injury. 2. 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 RADIA
== END 2019-06-16 13:00 | disposition home or self-care (01) ==
LOC: DI 12:59
PROVIDERS: ATTEND Orthopaedic Surgery Sports Medicine
DX: M79.89 Other specified soft tissue disorders (principal); S63.651A Sprain of metacarpophalangeal joint of left index finger, initial encounter

== ENCOUNTER 2019-12-05 07:29 | Outpatient (CLI) | payer MEDICAID ==
--- NOTE | 2019-12-05 13:13 | XRAY Report ---
PROCEDURE: Tib/Fib LT INDICATIONS: LEFT LEG PAIN TECHNIQUE: 2 views of the tibia and fibula were acquired. COMPARISON: none FINDINGS: Bones: No fractures or dislocations. No suspicious bony lesions. Soft tissues: No suspicious soft tissue calcifications or masses. IMPRESSION: No discrete mass. Reviewed by: Ayaka Oropeza MD on 12/05/2019 1:12 PM PDT Approved by: Ayaka Oropeza MD on 12/05/2019 1:12 PM PDT Station ID: [id number]
== END 2019-12-05 07:30 | disposition home or self-care (01) ==
LOC: DI.WCP 07:29
PROVIDERS: ATTEND Physician Assistant Medical
DX: M79.605 Pain in left leg (principal)

== ENCOUNTER 2020-02-22 11:28 | Outpatient (CLI) | payer MEDICAID ==
--- NOTE | 2020-02-22 12:29 | CT Report ---
PROCEDURE: Low Dose Lung Cancer Screen INDICATIONS: NICOTINE DEPENDENCE - CIGARETTES TECHNIQUE: Noncontrast low-dose 5 mm thick sections acquired from the pulmonary apices to the posterior costophr enic angles. 7 mm thick coronal and sagittal MIP reformats were then acquired. For radiation dose r eduction, the following was used: automated exposure control, adjustment of mA and/or kV according t o patient size. COMPARISON: None. FINDINGS: Image quality: Excellent. Lungs and pleura: No nodules or masses. No acute airspace abnormality. No pneumothorax or pleural ef fusion. Mediastinum: Heart size is normal. No pericardial effusion. No mediastinal adenopathy by size crit eria. Thoracic aorta and central pulmonary arteries are normal in size. Esophagus is normal in bo alicia. No hiatal hernia. Bones and chest wall: No suspicious bony lesions. No vertebral body compression fractures. No axil julia or supraclavicular adenopathy by size criteria. The thyroid is normal in size. Abdomen: Visualized upper abdomen solid organs and bowel loops appear normal in the absence of contr ast. IMPRESSION: BI-RADS 1. Negative. Recommend continued annual low dose CT screening. Reviewed by: Gray Tavares on 02/22/2020 12:28 PM PST Approved by: Gray Tavares on 02/22/2020 12:28 PM PST Station ID: [id number]
== END 2020-02-22 11:29 | disposition home or self-care (01) ==
LOC: DI 11:28
PROVIDERS: ATTEND Nurse Practitioner Family
DX: Z12.2 Encounter for screening for malignant neoplasm of respiratory organs (principal); F17.210 Nicotine dependence, cigarettes, uncomplicated
CPT/HCPCS: G0297 ×2

== ENCOUNTER 2020-03-28 06:21 | Day surgery (SDC) | payer MEDICAID ==
[~2020-03-28 06:21] MED LIST: SODIUM/POTASSIUM/MAG SULFATES 354 ML PREP KIT PO SCH
--- NOTE | 2020-03-28 07:16 | ANESTHESIA ---
Pre-Anesthesia VS, & Labs - Diagnosis history of polyps - Procedure colonoscopy Vital Signs: Temp Pulse Resp BP Pulse Ox 35.9 C L 85 16 131/94 H 94 03/28/20 06:30 03/28/20 06:30 03/28/20 06:30 03/28/20 06:30 03/28/20 06:30 Height: 5 ft 2 in Weight (kg): 75.1 kg Body Mass Index: 30.2 BMI Classification: Obese - NPO >8 hours - Is Patient ?: No Home Medications and Allergies Home Medications: Ambulatory Orders Cetirizine [ZyrTEC] 10 mg PO DAILY 03/24/20 Duloxetine HCl [Cymbalta] 20 mg PO DAILY 03/24/20 Famotidine [Pepcid] 20 mg PO DAILY 03/24/20 Fluticasone Propionate 2 spray NS DAILY 03/24/20 Lisinopril [Prinivil] 10 mg PO DAILY 03/24/20 Cetirizine [ZyrTEC] 10 mg PO DAILY 03/24/20 Duloxetine HCl [Cymbalta] 20 mg PO DAILY 03/24/20 Famotidine [Pepcid] 20 mg PO DAILY 03/24/20 Fluticasone Propionate 2 spray NS DAILY 03/24/20 Lisinopril [Prinivil] 10 mg PO DAILY 03/24/20 Allergies/Adverse Reactions: Allergies Allergy/AdvReac Type Severity Reaction Status Date / Time doxycycline Allergy Anaphylaxis Verified 06/03/17 10:33 hydrochlorothiazide Allergy Unknown Verified 03/28/20 06:48 cephalexin [From Keflex] AdvReac Unknown Verified 03/28/20 06:48 spinach AdvReac Rash Verified 06/03/17 10:33 trazodone AdvReac Unknown Verified 03/28/20 06:48 Anes History & Medical History - Anesthetic History Anesthesia Complications: reports: No previous complications - Medical History Cardiovascular: reports: Hypertension Pulmonary: reports: None Gastrointestinal: reports: GERD, Colon polyps, Hepatitis Urinary: reports: None Neuro: reports: None Musculoskeletal: reports: Osteoarthritis, Chronic back pain Endocrine/Autoimmune: reports: None Blood Disorders: reports: None Skin: reports: None Smoking Status: Current every day smoker (pack per day. 39 years) Psychosocial: reports: No issues indicated (recovered opioid user.) History of Cancer?: No - Surgical History General: Cholecystectomy Gynecologic: Hysterectomy, Breast reduction Orthopedic: Other Exam General: Alert, Oriented x3, Cooperative, No acute distress Dental: Poor dentition Mouth Openin Fingerbreadth Neck Mobility: Normal Mallampati classification: III Thyromental Distance: 4-6 cm Mental/Cognitive Status: Alert/Oriented X3, Normal for patient Plan Anesthesia Type: MAC Consent for Procedure(s) Verified and Reviewed: Yes Code Status: Attempt Resuscitation ASA classification: 2-Mild systemic disease Is this case an emergency?: No
[2020-03-28] MEDS ORDERED: PROPOFOL 500 MG/50 ML 500 MG/50 ML VIAL ONE (07:31)
[2020-03-28] MEDS ORDERED: MIDAZOLAM 2 MG/2 ML VIAL ONE (07:32)
[2020-03-28] MEDS ORDERED: LACTATED RINGERS 450 ML IV ONE (08:11)
[2020-03-28 08:53] VITALS: BP 124/94
--- NOTE | 2020-03-28 09:37 | ANESTHESIA POST OP EVALUATION ---
Anesthesia Post Eval - Post Anesthesia Eval Vitals: Last Vital Signs Temp 36.0 C L 03/28/20 08:50 Pulse 75 03/28/20 08:50 Resp 20 03/28/20 08:50 BP 124/94 H 03/28/20 08:50 Pulse Ox 98 03/28/20 08:50 CV Function Including HR & BP: positive: Stable Pain Control: positive: Satisfactory Nausea & Vomiting: positive: Negative Mental Status: positive: Baseline Respiratory Status: Airway Patent Hydration Status: Satisfactory Anesthesia Complications: positive: None
== END 2020-03-28 06:22 | disposition home or self-care (01) ==
LOC: SDS 06:21
PROVIDERS: ATTEND Surgery
PROC: 0DBL8ZZ Excision of Transverse Colon, Via Natural or Artificial Opening Endoscopic (ICD-10-PCS; principal; 2020-03-28 07:30)
DX: Z12.11 Encounter for screening for malignant neoplasm of colon (principal); K63.5 Polyp of colon; K62.1 Rectal polyp; I10 Essential (primary) hypertension; K21.9 Gastro-esophageal reflux disease without esophagitis; F17.210 Nicotine dependence, cigarettes, uncomplicated; E66.9 Obesity, unspecified; Z68.30 Body mass index [BMI] 30.0-30.9, adult; G89.29 Other chronic pain; M54.9 Dorsalgia, unspecified; G62.9 Polyneuropathy, unspecified; Z79.1 Long term (current) use of non-steroidal anti-inflammatories (NSAID); Z79.899 Other long term (current) drug therapy
CPT/HCPCS: 45380; A9270; J7120

== ENCOUNTER 2020-04-24 11:07 | Outpatient (CLI) | payer MEDICAID ==
--- NOTE | 2020-04-24 11:28 | XRAY Report ---
PROCEDURE: Shoulder 3 View LT INDICATIONS: LEFT SHOULDER PAIN TECHNIQUE: 3 views of the shoulder were acquired. COMPARISON: None. FINDINGS: Bones: No fractures or dislocations. No suspicious bony lesions. Visualized ribs appear intact. M ild articular osteophyte formation at the acromioclavicular and glenohumeral joints. Soft tissues: No suspicious soft tissue calcifications. IMPRESSION: Osteoarthritis. No acute fracture. No osseous lesion. If symptoms and/or clinical suspic ion for pathology continue, further assessment with repeat plain films, or advanced imaging (e.g., CT , MRI, or bone scan) is recommended for further assessment. Reviewed by: Ramiro Bustillo MD on 04/24/2020 11:27 AM PST Approved by: Ramiro Bustillo MD on 04/24/2020 11:27 AM PST Station ID: [id number]
== END 2020-04-24 23:59 | disposition home or self-care (01) ==
LOC: DI.WCP 11:07
PROVIDERS: ATTEND Physician Assistant Medical
DX: M75.42 Impingement syndrome of left shoulder (principal); M19.012 Primary osteoarthritis, left shoulder

== ENCOUNTER 2020-05-08 09:09 | Outpatient (CLI) | payer MEDICAID ==
--- NOTE | 2020-05-09 13:00 | Mammography Report ---
BILATERAL DIGITAL SCREENING MAMMOGRAM 3D/2D: 05/08/2020 CLINICAL: Routine screening. Comparison is made to exam dated: 11/05/2015 mammogram - [facility]. There are sca ttered fibroglandular elements in both breasts. There are benign calcifications in both breasts. No significant masses, calcifications, or other findings are seen in either breast. There has been no significant interval change. IMPRESSION: BENIGN There is no mammographic evidence of malignancy. A 1 year screening mammogram is recommended. This exam was interpreted at Station ID: [id number]. NOTE: For mammograms, a report in lay terms will be sent to the patient. Approximately 15% of breast malignancies will not be visualized mammographically. In the management of a palpable breast mass, a negative mammogram must not discourage biopsy of a clinically suspicious lesion. Electronically Signed By: Gray Tavares acr/penrad:05/08/2020 10:07:27 ACR BI-RADS Category 2: Benign Finding(s) 3342F PARENCHYMAL PATTERN: (A) - The breast(s) demonstrate(s) scattered fibroglandular densities. BI-RADS CATEGORY: (2) - 2 RECOMMENDATION: (ANNUAL) - Recommend routine annual screening mammography. [id number] 1 year screening LATERALITY: (B)
== END 2020-05-08 09:10 | disposition home or self-care (01) ==
LOC: DI.N 09:09
DX: Z12.31 Encounter for screening mammogram for malignant neoplasm of breast (principal)

== ENCOUNTER 2020-09-02 11:02 | Outpatient (CLI) | payer MEDICAID | END 2020-09-02 11:03 | disposition home or self-care (01) | LOC: LAB.N 11:02 | PROVIDERS: ATTEND Nurse Practitioner Family | DX: Z53.9 Procedure and treatment not carried out, unspecified reason (principal) ==

== ENCOUNTER 2020-09-02 11:09 | Outpatient (CLI) | payer MEDICAID ==
[2020-09-02 17:51] LABS: BASOPHILS % (AUTO) 0.3 %; EOSINOPHILS # (AUTO) 0.1 10^3/uL (0.0-0.7); EOSINOPHILS % (AUTO) 0.5 %; HCT - HEMATOCRIT 44.4 % (37.0-47.0); HGB - HEMOGLOBIN 14.3 g/dL (12.0-16.0); LYMPHOCYTES # (AUTO) 3.2 10^3/uL (1.5-3.5); LYMPHOCYTES % (AUTO) 33.5 %; MEAN CORPUSCULAR HEMOGLOBIN 28.9 pg (27.0-31.0); MEAN CORPUSCULAR HGB CONC 32.2 g/dL (32.0-36.0); MEAN CORPUSCULAR VOLUME 89.7 fL (81.0-99.0); MEAN PLATELET VOLUME 10.3 fL (7.9-10.8); MONOCYTES # (AUTO) 0.6 10^3/uL (0.0-1.0); NEUTROPHILS # (AUTO) 5.7 10^3/uL (1.5-6.6); NEUTROPHILS % (AUTO) 59.4 %; PLT - PLATELET COUNT 319 10^3/uL (130-450); RED BLOOD COUNT 4.95 10^6/uL (4.20-5.40); RED CELL DISTRIBUTION WIDTH 12.4 % (12.0-15.0); WHITE BLOOD COUNT 9.6 x10^3/uL (4.8-10.8)
[2020-09-02 18:17] LABS: ALBUMIN 4.4 g/dL (3.2-5.5); ALBUMIN/GLOBULIN RATIO 1.3 (1.0-2.2); ALKALINE PHOSPHATASE 60 IU/L (42-121); ALT ALANINE AMINOTRANSFERASE 11 IU/L (10-60); AST ASPARTATE AMINOTRANSFERASE 16 IU/L (10-42); BILIRUBIN,TOTAL 0.5 mg/dL (0.2-1.0); BUN - BLOOD UREA NITROGEN 16 mg/dL (6-20); CALCIUM 8.8 mg/dL (8.5-10.3); CARBON DIOXIDE - CO2 24 mmol/L (21-32); CHLORIDE 102 mmol/L (101-111); CHOL/HDL RATIO 5.4 (<4.4); CHOLESTEROL 233 mg/dL; CREATININE 0.5 mg/dL (0.4-1.0); GFR - MDRD 126 (>89); GLUCOSE 90 mg/dL (70-100); HDL CHOLESTEROL 43 mg/dL; LDL CHOLESTEROL,CALCULATED 153 mg/dL; LDL/HDL RATIO 3.6 (<4.4); SODIUM 135 mmol/L (135-145); TOTAL PROTEIN 7.9 g/dL (6.7-8.2); TRIGLYCERIDES 186 mg/dL; VLDL CHOLESTEROL 37 mg/dL
[2020-09-02 18:23] LABS: THYROID STIMULATING HORMONE 2.31 uIU/mL (0.34-5.60)
== END 2020-09-02 23:59 | disposition home or self-care (01) ==
LOC: LAB.N 11:09
PROVIDERS: ATTEND Nurse Practitioner Family
DX: I10 Essential (primary) hypertension (principal); B19.20 Unspecified viral hepatitis C without hepatic coma
CPT/HCPCS: 36415; 80053; 80061; 83721; 84443; 85025

== ENCOUNTER 2020-10-28 08:00 | Outpatient (CLI) | payer MEDICAID ==
[2020-10-28 22:34] LABS: BACTERIAL VAGINOSIS DNA NEGATIVE (NEGATIVE); CANDIDA GLABRATA DNA NEGATIVE (NEGATIVE); CANDIDA GROUP DNA NEGATIVE (NEGATIVE); CANDIDA KRUSEI DNA NEGATIVE (NEGATIVE); TRICHOMONAS VAGINALIS DNA NEGATIVE (NEGATIVE)
== END 2020-10-28 23:59 | disposition home or self-care (01) ==
LOC: LAB.N 08:00
PROVIDERS: ATTEND Physician Assistant Medical
DX: N94.9 Unspecified condition associated with female genital organs and menstrual cycle (principal)
CPT/HCPCS: 87661; 87801

== ENCOUNTER 2021-02-16 15:46 | Outpatient (CLI) | payer MEDICAID ==
--- NOTE | 2021-02-16 16:45 | XRAY Report ---
PROCEDURE: Humerus LT INDICATIONS: L UPPER ARM PX TECHNIQUE: 2 views of the humerus were acquired. COMPARISON: None FINDINGS: Bones: No fractures or dislocations. Moderate acromioclavicular joint and glenohumeral joint osteoa rthritic changes are seen. No suspicious bony lesions. Soft tissues: Small corticated calcification adjacent to posterior aspect of proximal humeral shaft i s seen likely represent dystrophic calcification from remote injury. IMPRESSION: Moderate left shoulder joint osteoarthritis. No humeral fracture or dislocation. Reviewed by: Kyle Carcamo MD on 02/16/2021 4:43 PM PST Approved by: Kyle Carcamo MD on 02/16/2021 4:43 PM PST Station ID: [id number]
== END 2021-02-16 23:59 | disposition home or self-care (01) ==
LOC: DI.N 15:46
PROVIDERS: ATTEND Nurse Practitioner
DX: M19.012 Primary osteoarthritis, left shoulder (principal)

== ENCOUNTER → 2021-06-02 | Outpatient (CLI) | payer MEDICAID ==
--- NOTE | 2021-06-02 17:38 | XRAY Report ---
PROCEDURE: Shoulder 3 View LT INDICATIONS: LEFT ARM PAIN/NUMBNESS TECHNIQUE: 4 views of the shoulder were acquired. COMPARISON: None. FINDINGS: Bones: No fractures or dislocations. No suspicious bony lesions. Visualized ribs appear intact. Mo derate acromioclavicular joint arthritis. Soft tissues: No suspicious soft tissue calcifications. IMPRESSION: Acromioclavicular joint osteoarthritis. No fracture. No acute osseous lesion. If there are persistent symptoms or continued clinical concern for pathology, then repeat plain film radiographs (7-10 days) or advanced imaging (CT, MR, bone scan) should be considered for further evaluation. Reviewed by: Kendra Caro MD, PhD on 06/02/2021 5:37 PM PDT Approved by: Kendra Caro MD, PhD on 06/02/2021 5:37 PM PDT Station ID: [id number]
--- NOTE | 2021-06-02 17:51 | XRAY Report ---
PROCEDURE: Cervical Spine 2 View INDICATIONS: LEFT ARM PAIN NUMBNESS TECHNIQUE: 3 view(s) of the cervical spine were acquired. COMPARISON: CT cervical spine 06/15/2012. FINDINGS: Bones: No fractures or dislocations to the T1 level. The lateral masses of C1 appear intact on the odontoid view. Moderate degenerative change in the cervical spine. This is demonstrable by osteophyt osis, intervertebral disc space height loss, and uncovertebral joint hypertrophy. No suspicious bony lesions. Soft tissues: No prevertebral soft tissue swelling. IMPRESSION: Moderate degenerative change in the cervical spine. Reviewed by: Jeremiah Gonzales MD on 06/02/2021 5:50 PM PDT Approved by: Jeremiah Gonzales MD on 06/02/2021 5:50 PM PDT Station ID: [id number]
== END ==
LOC: DI.WOS 14:45
PROVIDERS: ATTEND Physician Assistant
DX: M47.22 Other spondylosis with radiculopathy, cervical region (principal); M50.10 Cervical disc disorder with radiculopathy, unspecified cervical region; M19.012 Primary osteoarthritis, left shoulder

== ENCOUNTER 2022-04-29 09:39 | Outpatient (CLI) | payer MEDICAID ==
--- NOTE | 2022-04-30 12:14 | Mammography Report ---
BILATERAL DIGITAL SCREENING MAMMOGRAM 3D/2D: 04/29/2022 CLINICAL: Routine screening. Comparison is made to exams dated: 05/08/2020 mammogram and 11/05/2015 mammogram - [facility]. There are scattered areas of fibroglandular density in both breasts (category b / 25%-50% glandular t issue). There are benign calcifications in both breasts. No significant masses, calcifications, or other findings are seen in either breast. There has been no significant interval change. IMPRESSION: BENIGN There is no mammographic evidence of malignancy. A 1 year screening mammogram is recommended. Based on the Tyrer Cuzick model (a risk assessment model) the patients lifetime risk is 5.1% and her 10 year risk is 2.1%. According to the ACR, ACS, and NCCN guidelines, an annual breast MRI exam miguel g with mammogram is recommended if the patients lifetime risk is 20% or greater. This exam was interpreted at Station ID: [id number]. NOTE: For mammograms, a report in lay terms will be sent to the patient. Approximately 15% of breast malignancies will not be visualized mammographically. In the management of a palpable breast mass, a negative mammogram must not discourage biopsy of a clinically suspicious lesion. Electronically Signed By: Jaswant Rivas M.D., jr/kenny:04/29/2022 11:28:14 ACR BI-RADS Category 2: Benign Finding(s) 3342F PARENCHYMAL PATTERN: (A) - The breast(s) demonstrate(s) scattered fibroglandular densities. BI-RADS CATEGORY: (2) - 2 RECOMMENDATION: (ANNUAL) - Recommend routine annual screening mammography. [id number] 1 year screening LATERALITY: (B)
== END 2022-04-29 09:40 | disposition home or self-care (01) ==
LOC: DI.N 09:39
DX: Z12.31 Encounter for screening mammogram for malignant neoplasm of breast (principal)

== ENCOUNTER 2022-05-25 09:02 | Outpatient (CLI) | payer MEDICAID ==
[2022-05-25 12:47] LABS: BASOPHILS % (AUTO) 0.4 %; EOSINOPHILS # (AUTO) 0.1 10^3/uL (0.0-0.7); EOSINOPHILS % (AUTO) 0.6 %; HCT - HEMATOCRIT 45.6 % (37.0-47.0); HGB - HEMOGLOBIN 14.6 g/dL (12.0-16.0); LYMPHOCYTES # (AUTO) 3.1 10^3/uL (1.5-3.5); LYMPHOCYTES % (AUTO) 33.6 %; MEAN CORPUSCULAR HEMOGLOBIN 28.2 pg (27.0-31.0); MEAN CORPUSCULAR VOLUME 88.2 fL (81.0-99.0); MEAN PLATELET VOLUME 10.1 fL (7.9-10.8); MONOCYTES # (AUTO) 0.5 10^3/uL (0.0-1.0); MONOCYTES % (AUTO) 5.7 %; NEUTROPHILS # (AUTO) 5.5 10^3/uL (1.5-6.6); NEUTROPHILS % (AUTO) 59.4 %; PLT - PLATELET COUNT 332 10^3/uL (130-450); RED BLOOD COUNT 5.17 10^6/uL (4.20-5.40); WHITE BLOOD COUNT 9.3 x10^3/uL (4.8-10.8)
[2022-05-25 13:29] LABS: THYROID STIMULATING HORMONE 1.76 uIU/mL (0.34-5.60)
[2022-05-25 13:55] LABS: ALBUMIN 4.3 g/dL (3.2-5.5); ALBUMIN/GLOBULIN RATIO 1.1 (1.0-2.2); ALKALINE PHOSPHATASE 52 IU/L (42-121); ALT ALANINE AMINOTRANSFERASE 12 IU/L (10-60); AST ASPARTATE AMINOTRANSFERASE 17 IU/L (10-42); BILIRUBIN,TOTAL 0.5 mg/dL (0.2-1.0); BUN - BLOOD UREA NITROGEN 18 mg/dL (6-20); CALCIUM 8.8 mg/dL (8.5-10.3); CARBON DIOXIDE - CO2 25 mmol/L (21-32); CHLORIDE 101 mmol/L (101-111); CHOL/HDL RATIO 5.3 (<4.4); CHOLESTEROL 212 mg/dL; CREATININE 0.5 mg/dL (0.4-1.0); GFR - MDRD 125 (>89); GLUCOSE 79 mg/dL (70-100); HDL CHOLESTEROL 40 mg/dL; LDL CHOLESTEROL,CALCULATED 142 mg/dL; LDL/HDL RATIO 3.6 (<4.4); POTASSIUM 3.7 mmol/L (3.5-5.0); SODIUM 137 mmol/L (135-145); TOTAL PROTEIN 8.1 g/dL (6.7-8.2); TRIGLYCERIDES 148 mg/dL; VLDL CHOLESTEROL 30 mg/dL
== END 2022-05-25 09:03 | disposition home or self-care (01) ==
LOC: LAB.N 09:02
PROVIDERS: ATTEND Nurse Practitioner
DX: I10 Essential (primary) hypertension (principal); J30.9 Allergic rhinitis, unspecified; Z13.220 Encounter for screening for lipoid disorders; G62.9 Polyneuropathy, unspecified
CPT/HCPCS: 36415; 80053; 80061; 83721; 84443; 85025

== ENCOUNTER 2022-10-18 09:43 | Outpatient (CLI) | payer MEDICAID ==
--- NOTE | 2022-10-18 17:40 | XRAY Report ---
PROCEDURE: Knee 4 View LT INDICATIONS: KNEE PAIN LEFT TECHNIQUE: 4 views of the left knee(s) were acquired. COMPARISON: X-ray knees bilateral, 05/19/2017. FINDINGS: Bones: No fractures or dislocations. No suspicious bony lesions. Moderate osteoarthritic changes. Soft tissues: Small knee joint effusion. No suspicious soft tissue calcifications or masses. IMPRESSION: 1. Moderate osteoarthritis. 2. Small knee joint effusion. Reviewed by: Jason Galeas MD on 10/18/2022 5:39 PM PDT Approved by: Jason Galeas MD on 10/18/2022 5:39 PM PDT Station ID: [id number]
== END 2022-10-18 09:44 | disposition home or self-care (01) ==
LOC: DI 09:43
PROVIDERS: ATTEND Nurse Practitioner
DX: M17.12 Unilateral primary osteoarthritis, left knee (principal); M25.462 Effusion, left knee

== ENCOUNTER 2023-07-20 09:10 | Outpatient (CLI) | payer MEDICAID | END 2023-07-20 23:59 | disposition critical access hospital (66) | LOC: EMS 09:10 | DX: S89.92XA Unspecified injury of left lower leg, initial encounter (principal); W01.0XXA Fall on same level from slipping, tripping and stumbling without subsequent striking against object, initial encounter; Y92.009 Unspecified place in unspecified non-institutional (private) residence as the place of occurrence of the external cause | CPT/HCPCS: A0425; A0426; A0427; A0999 ==

== ENCOUNTER 2023-07-20 09:30 | Emergency (ER) | payer MEDICAID ==
[2023-07-20] MEDS: MORPHINE 2 MG/ML CARPUJECT IVP STA (09:55)
--- NOTE | 2023-07-20 10:10 | XRAY Report ---
PROCEDURE: Knee 2V LT INDICATIONS: fall onto knee TECHNIQUE: 2 views of the knee(s) were acquired. COMPARISON: None. FINDINGS: Bones: Intra-articular, displaced, comminuted fracture of the distal femur. Soft tissues: Moderate knee joint effusion. No suspicious soft tissue calcifications or masses. IMPRESSION: Comminuted, displaced fracture of the distal femur. Reviewed by: Roverto Gamble MD on 07/20/2023 10:09 AM PDT Approved by: Roverto Gamble MD on 07/20/2023 10:09 AM PDT Station ID: [id number]
--- NOTE | 2023-07-20 10:11 | XRAY Report ---
PROCEDURE: Femur 2+V LT INDICATIONS: distal femur pain; fall TECHNIQUE: 2 views of the femur were acquired. COMPARISON: None. FINDINGS: Bones: Comminuted, intra-articular, displaced fracture of the distal femur. Soft tissues: No suspicious soft tissue calcifications or masses. IMPRESSION: Comminuted, intra-articular, displaced fracture of the distal femur. Reviewed by: Roverto Gamble MD on 07/20/2023 10:10 AM PDT Approved by: Roverto Gamble MD on 07/20/2023 10:10 AM PDT Station ID: [id number]
[2023-07-20 11:06] LABS: BASOPHILS % (AUTO) 0.2 %; EOSINOPHILS % (AUTO) 0.3 %; HCT - HEMATOCRIT 39.1 % (37.0-47.0); HGB - HEMOGLOBIN 12.9 g/dL (12.0-16.0); LYMPHOCYTES # (AUTO) 1.4 10^3/uL (1.5-3.5); LYMPHOCYTES % (AUTO) 10.3 %; MEAN CORPUSCULAR HEMOGLOBIN 28.5 pg (27.0-31.0); MEAN CORPUSCULAR VOLUME 86.5 fL (81.0-99.0); MONOCYTES # (AUTO) 0.6 10^3/uL (0.0-1.0); MONOCYTES % (AUTO) 4.7 %; NEUTROPHILS # (AUTO) 11.1 10^3/uL (1.5-6.6); NEUTROPHILS % (AUTO) 84.2 %; PLT - PLATELET COUNT 279 10^3/uL (130-450); RED BLOOD COUNT 4.52 10^6/uL (4.20-5.40); RED CELL DISTRIBUTION WIDTH 12.1 % (12.0-15.0); WHITE BLOOD COUNT 13.2 x10^3/uL (4.8-10.8)
[2023-07-20 11:21] LABS: ALBUMIN/GLOBULIN RATIO 1.3 (1.0-2.2); BILIRUBIN,TOTAL 0.5 mg/dL (0.2-1.0); CALCIUM 9.1 mg/dL (8.5-10.3); CREATININE 0.5 mg/dL (0.6-1.3); POTASSIUM 3.4 mmol/L (3.5-4.5); TOTAL PROTEIN 7.1 g/dL (6.4-8.9)
--- NOTE | 2023-07-20 11:25 | ED Physician Documentation ---
PD HPI LOWER EXT INJURY - Stated complaint Stated Complaint: L KNEE INJ - Chief complaint Chief Complaint: Trauma Ext - History obtained from History obtained from: Patient - Additional information Additional information: Patient is a 62-year-old female with a history of hypertension presenting for evaluation of left knee pain after a trip and fall over a baby gate this morning. She did not hit her head. She reports she landed on her left knee. She has not been able to ambulate since. EMS administered 50 mcg of fentanyl en route. She does not take a blood thinner. She had coffee this morning but otherwise no p.o. intake today. 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, Breast reduction - Present Medications Home Medications: Ambulatory Orders Medication Instructions Recorded Confirmed Cetirizine [ZyrTEC] 10 mg PO DAILY 03/24/20 07/20/23 Duloxetine HCl [Cymbalta] 20 mg PO DAILY 03/24/20 07/20/23 Famotidine [Pepcid] 20 mg PO DAILY 03/24/20 07/20/23 Fluticasone Propionate 2 spray NS DAILY 03/24/20 07/20/23 lisinopriL [Prinivil] 10 mg PO DAILY 03/24/20 07/20/23 Meloxicam 15 mg PO DAILY 07/20/23 07/20/23 - Allergies Allergies/Adverse Reactions: Allergies Allergy/AdvReac Type Severity Reaction Status Date / Time doxycycline Allergy Anaphylaxis Verified 07/20/23 09:45 hydrochlorothiazide Allergy Unknown Verified 07/20/23 09:45 cephalexin [From Keflex] AdvReac Unknown Verified 07/20/23 09:45 spinach AdvReac Rash Verified 07/20/23 09:45 trazodone AdvReac Unknown Verified 07/20/23 09:45 - Social History Does the pt smoke?: Yes Smoking Status: Current every day smoker Does the pt drink ETOH?: No Does the pt have substance abuse?: No - Immunizations Immunizations are current?: Yes PD ED PE NORMAL - General General: Alert and oriented X 3, No acute distress, Well developed/nourished - HEENT HEENT: Atraumatic, Moist mucous membranes - Neck Neck: Supple, no meningeal sign, No bony TTP, C-Spine cleared by NEXUS criteria - Cardiac Cardiac: RRR, Strong equal pulses - Respiratory Respiratory: No respiratory distress, Clear bilaterally - Abdomen Abdomen: Soft, Non tender, Non distended - Derm Derm: Warm and dry - Extremities Extremities: Other (Deformity to left knee and tenderness over distal femur, distal pulses intact, no tenderness over lower leg) - Neuro Neuro: Alert and oriented X 3, No motor deficit, No sensory deficit, Normal speech Results - Vitals Vitals: Vital Signs - 24 hr 07/20/23 07/20/23 07/20/23 09:37 10:43 12:00 Temperature 36.7 C Heart Rate 75 68 64 Respiratory 16 20 16 Rate Blood Pressure 97/77 117/98 H 116/76 O2 Saturation 99 97 95 07/20/23 14:00 Temperature Heart Rate 72 Respiratory 17 Rate Blood Pressure 98/51 L O2 Saturation 98 Oxygen O2 Source Room air - Labs Labs: Laboratory Tests 07/20/23 07/20/23 11:01 11:01 WBC 13.2 H RBC 4.52 Hgb 12.9 Hct 39.1 MCV 86.5 MCH 28.5 MCHC 33.0 RDW 12.1 Plt Count 279 MPV 9.0 Neut # (Auto) 11.1 H Lymph # (Auto) 1.4 L [place] # (Auto) 0.6 Eos # (Auto) 0.0 Baso # (Auto) 0.0 Absolute Nucleated RBC 0.00 Nucleated RBC % 0.0 Sodium 136 Potassium 3.4 L Chloride 101 Carbon Dioxide 27 Anion Gap 8.0 BUN 16 Creatinine 0.5 L Estimated GFR (MDRD) 125 Glucose 112 H Calcium 9.1 Total Bilirubin 0.5 AST 11 ALT 8 L Alkaline Phosphatase 64 Total Protein 7.1 Albumin 4.0 Globulin 3.1 Albumin/Globulin Ratio 1.3 PD Medical Decision Making - ED course Complexity details: reviewed results, re-evaluated patient, d/w patient ED course: Patient is a 62-year-old female presenting for evaluation Of injury to the left knee region after fall over a baby gate. No head injury and does not take blood thinners. Neurovascularly intact. X-rays were obtained of the left knee as well as left femur. She does have deformity in the region of the distal femur and on x-ray has a comminuted fracture of the distal femur. We do not have orthopedic surgery coverage for the next 48 hours.After calling around to area hospitals we were able to find an accepting Orthopedic surgeon at [facility] in [place].Patient was given IV morphine and IV Dilaudid for pain control. She was placed into a long-leg splint.CBC and chemistries were reviewed. Potassium 3.4 and IV replacement was given. Surgery is planned for tomorrow so she was allowed to eat. Patient transported in stable condition. 1110 - D/W Dr. Beatty ([facility]) - Does not operate on lower extremities and his focus is on upper extremities would not be able to accept the patient. 1315 - Discussed with Dr. Ross, orthopedic surgery at [facility] in [place]. He has reviewed the images and accepts the patient. Would like patient to be taken onto the hospitalist service and he will consult. Plan for surgery tomorrow. 1331 - D/W Dr. Velasquez, Hospitalist at [facility] in [place]. He will accept the patient. Departure - Departure Disposition: 02 Transfer Acute Care Hosp Clinical Impression: Hypokalemia Femoral distal fracture Qualifiers: Encounter type: initial encounter Fracture type: closed Fracture morphology: other fracture Laterality: left Qualified Code(s): S72.492A - Other fracture of lower end of left femur, initial encounter for closed fracture Condition: Good Forms: PCP List Discharge Date/Time: 07/20/23 15:15
[2023-07-20] MEDS: SODIUM CHLORIDE 0.9% 1,000 ML IV STA (11:45)
[2023-07-20] MEDS: HYDROmorphone 0.5 MG/0.5 ML SYRINGE IVP STA (11:46)
[2023-07-20] MEDS: POTASSIUM CHLOR 10 MEQ/100 ML 10 MEQ/100 ML BAG IV SCH (12:04)
[2023-07-20] MEDS: HYDROmorphone 0.5 MG/0.5 ML SYRINGE IVP PRN (15:05)
[2023-07-20 15:07] VITALS: BP 98/51; O2SAT 98
== END 2023-07-20 15:15 | disposition short-term general hospital (02) ==
LOC: EDUNIT# → ED 09:30
DX: S72.402A Unspecified fracture of lower end of left femur, initial encounter for closed fracture (principal); W01.0XXA Fall on same level from slipping, tripping and stumbling without subsequent striking against object, initial encounter; Y93.89 Activity, other specified; E87.6 Hypokalemia; F17.200 Nicotine dependence, unspecified, uncomplicated
CPT/HCPCS: 36415; 73552; 73560; 80053; 85025; 96365; 96366; 96375; 96376; 99284; 99285; J1170

== ENCOUNTER 2023-07-20 15:16 | Outpatient (CLI) | payer MEDICAID | END 2023-07-20 23:59 | disposition short-term general hospital (02) | LOC: EMS 15:16 | PROVIDERS: ATTEND Emergency Medicine | DX: S72.402A Unspecified fracture of lower end of left femur, initial encounter for closed fracture (principal); W01.0XXA Fall on same level from slipping, tripping and stumbling without subsequent striking against object, initial encounter ==

== ENCOUNTER 2023-11-04 08:39 | Outpatient (CLI) | payer MEDICAID ==
[2023-11-04 12:08] LABS: BASOPHILS # (AUTO) 0.1 10^3/uL (0.0-0.1); BASOPHILS % (AUTO) 0.6 %; EOSINOPHILS # (AUTO) 0.1 10^3/uL (0.0-0.7); EOSINOPHILS % (AUTO) 1.1 %; HCT - HEMATOCRIT 47.1 % (37.0-47.0); HGB - HEMOGLOBIN 14.8 g/dL (12.0-16.0); LYMPHOCYTES # (AUTO) 2.7 10^3/uL (1.5-3.5); MEAN CORPUSCULAR HEMOGLOBIN 27.3 pg (27.0-31.0); MEAN CORPUSCULAR HGB CONC 31.4 g/dL (32.0-36.0); MEAN CORPUSCULAR VOLUME 86.7 fL (81.0-99.0); MONOCYTES # (AUTO) 0.5 10^3/uL (0.0-1.0); NEUTROPHILS # (AUTO) 4.9 10^3/uL (1.5-6.6); NEUTROPHILS % (AUTO) 59.2 %; PLT - PLATELET COUNT 326 10^3/uL (130-450); RED BLOOD COUNT 5.43 10^6/uL (4.20-5.40); RED CELL DISTRIBUTION WIDTH 12.6 % (12.0-15.0); WHITE BLOOD COUNT 8.2 x10^3/uL (4.8-10.8)
[2023-11-04 12:44] LABS: ALBUMIN 4.2 g/dL (3.2-5.5); ALBUMIN/GLOBULIN RATIO 1.3 (1.0-2.2); BILIRUBIN,TOTAL 0.4 mg/dL (0.2-1.0); CALCIUM 9.1 mg/dL (8.5-10.3); CREATININE 0.4 mg/dL (0.6-1.3); TOTAL PROTEIN 7.5 g/dL (6.4-8.9)
== END 2023-11-04 08:40 | disposition home or self-care (01) ==
LOC: LAB.N 08:39
PROVIDERS: ATTEND Nurse Practitioner
DX: I10 Essential (primary) hypertension (principal)
CPT/HCPCS: 36415; 80053; 85025